=== PATIENT | male | born 1950 | race Caucasian/White ===

== ENCOUNTER 2016-12-29 06:56 | Day surgery (SDC) | payer OTHER ==
[~2016-12-29] VITALS: Ht 177.8 cm; Wt 82.5 kg
[2016-12-29] MEDS ORDERED: ATORVASTATIN CA80 MG PO (07:26)
[2016-12-29] MEDS ORDERED: ZANTAC 7575 MG PO (07:26)
[2016-12-29] MEDS ORDERED: EZETIMIBE10 MG PO (07:27)
[2016-12-29] MEDS ORDERED: TYLENOL325 MG PO (07:27)
--- NOTE | 2016-12-29 08:37 | NUR ---
12/29/16 0837 Abdoul Casey PATIENT PASSING AIR FROM RECTUM. SITTING UP AND SIPPING WATER.
--- NOTE | 2016-12-30 14:14 | OR ---
[facility] [address] [place], [place] [address] Signed DATE OF PROCEDURE: 12/29/16 PREOPERATIVE DIAGNOSES Personal history of colonic polyps, 2011. Internal hemorrhoids. Diverticulosis. Perianal skin tags. POSTOPERATIVE DIAGNOSES Perianal skin tags. Minimal to moderate internal hemorrhoids. Moderate sigmoid diverticulosis. #4 mm polyp in mid right colon. PROCEDURE: Colonoscopy with hot biopsy. ESTIMATED BLOOD LOSS: None. INDICATIONS Kurt is a 66-year-old old gentleman who came to us in 2011 for his colonoscopy. He had a perianal skin tag with left-sided diverticulosis and internal hemorrhoids. Adenomatous polyp was removed around 15 cm. He returns now for follow-up colonoscopy. He has no lower GI complaints. There was no family history of colon cancer or polyps. I gave Kurt a pamphlet on colonoscopy and we have reviewed the nature of the test along with the risks including, but not limited to gas bloating, crampy abdominal pain, bleeding, perforation requiring surgery, and missed diagnosis. We also discussed the need for IV conscious sedation. He had expressed understanding, wished to proceed. PROCEDURE NOTE Kurt was taken into endoscopy suite and placed in the left lateral decubitus position. He was given divided doses of 10 mg of Versed and 150 mcg of Fentanyl. Even then, he was awake and talking to us at the termination of the case. After this, a digital rectal exam was performed. He does have some external hemorrhoid tissue and some perianal skin tags. Prostate is a little indurated consistent with his age. The adult colonoscope was introduced and advanced all around into the cecum under direct visualization of camera without difficulty. His prep was good. The scope was then slowly withdrawn. He had a small 4-mm polyp in his mid-right colon. It was easily removed with the help of a hot biopsy forceps. He also has diverticula in the sigmoid colon. They were moderate in size, moderate in number and scattered about. Once in the rectum, the scope was then retroflexed and again he does have some minimal to moderate internal hemorrhoid columns. Otherwise, the rectum was fine. After this, the gas was suctioned out. The colonoscope removed. Kurt tolerated the procedure quite well. Electronically Signed By: MARY HAMEED MD 12/30/16 1414 PATIENT NAME: KURT OLIVEIRA OPERATIVE REPORT DATE OF : 54 PHYSICIAN: MARY HAMEED MD REPORT #: [id number] REPORT IS CONFIDENTIAL AND NOT TO BE RELEASED WITHOUT AUTHORIZATION [address] [address] Signed RECOMMENDATIONS I will see Kurt back in my office in 7-14 days to review his results. MD DEIDRE Pereira/Modl /[id number] cc: Prasanna Barbosa MD Electronically Signed By: MARY HAMEED MD 12/30/16 1414 PATIENT NAME: KRUT OLIVEIRA OPERATIVE REPORT DATE OF : 54 PHYSICIAN: MARY HAMEED MD REPORT #: [id number] REPORT IS CONFIDENTIAL AND NOT TO BE RELEASED WITHOUT AUTHORIZATION
== END 2016-12-29 09:15 | disposition home or self-care (01) ==
LOC: DS 06:56 → OPS 06:56 → DS 08:15 → OPS 08:15
PROVIDERS: Colon & Rectal Surgery
PROC: 0DBK8ZX Excision of Ascending Colon, Via Natural or Artificial Opening Endoscopic, Diagnostic (ICD-10-PCS; principal; 2016-12-29 08:15)
DX: K64.8 Other hemorrhoids (principal); K57.30 Diverticulosis of large intestine without perforation or abscess without bleeding; K64.4 Residual hemorrhoidal skin tags; I25.2 Old myocardial infarction; I70.90 Unspecified atherosclerosis; E78.5 Hyperlipidemia, unspecified; Z86.010 Personal history of colon polyps; Z98.818 Other dental procedure status; Z98.890 Other specified postprocedural states; Z87.891 Personal history of nicotine dependence; Z79.899 Other long term (current) drug therapy
CPT/HCPCS: J2250; J3010

== ENCOUNTER 2022-06-16 07:43 | Day surgery (SDC) | payer MEDICARE, OTHER ==
[~2022-06-16] VITALS: Ht 177.8 cm; Wt 84.0 kg
[~2022-06-16 07:43] MED LIST: ATORVASTATIN CA80 MG PO; EZETIMIBE10 MG PO; NEURONTIN100 MG PO; OMEPRAZOLE20 MG PO; PEPCID40 MG PO; REPATHA SY140 MG/1 M SUB-Q; TYLENOL325 MG PO; VITAMIN D312.5 MCG/5 PO; ZANTAC 7575 MG PO
[2022-06-16] MEDS ORDERED: OMEPRAZOLE20 M1 PO (08:11)
--- NOTE | 2022-06-16 09:47 | NUR ---
06/16/22 0947 Sheets,Catie [id number] PT ARRIVED TO PACU ON RA AND TALKING TO RN. PT DENIES CONCERNS AND IS ENCOURAGED TO PASS GAS NEEDED.
--- NOTE | 2022-06-17 08:12 | OR ---
[facility] [address] [place], [place] [address] Signed DATE OF OPERATION: 06/16/2022 SURGEON: Mary Hameed MD PREOPERATIVE DIAGNOSES: 1. Personal history of colonic polyps in 2012 at age 61. 2. Diverticulosis. 3. Internal hemorrhoids. POSTOPERATIVE DIAGNOSES: 1. Moderate sigmoid diverticulosis. 2. Minimal to moderate internal hemorrhoids. PROCEDURE: Colonoscopy without biopsy. ESTIMATED BLOOD LOSS: None. 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 I helped him with a colonoscopy in 2012 at the age of 61. We repeated his colonoscopy in 2017 at the age of 66. He currently has no lower GI complaints. He said his bowel movements are very regular. He has no family history of colon cancer or polyps. We know that we took out a tubular adenomatous polyp back in 2011. We know about his internal hemorrhoids and diverticulosis. We actually excised a single internal anal skin tag at that time in 2011. Of course, he remembers that quite vividly from the pain. We did take out a small polypoid lesion in the right colon in 2017. It was heavily cauterized and therefore the pathology report was not particularly forthcoming. He used large amount of Versed and fentanyl. He used 10 mg of Versed and 150 mcg of fentanyl. Nevertheless, he was frequently awake and moving around, but said he has no recall of the procedure. We talked about that in detail and he wanted to proceed again with Versed and fentanyl. In the office, I had given him a brochure on colonoscopy. We had reviewed the test. He understands there is risk including, but not limited to gas bloating, crampy abdominal pain, bleeding, perforation requiring surgery, and missed diagnosis. We also reviewed the written instructions for the bowel prep line by line. He does have significant sigmoid diverticulosis and I think additional bowel prep in the future would be helpful in that regard. And again, he wanted to use the Versed and fentanyl. He had expressed understanding and wished to proceed. Electronically Signed By: MARY HAMEED MD 06/17/22 0812 PATIENT NAME: OLY OLIVEIRA YURIY OPERATIVE REPORT DATE OF : 54 REPORT #: [id number] PHYSICIAN: MARY HAMEED MD PCP: IRA STEINBERG MD REPORT IS CONFIDENTIAL AND NOT TO BE RELEASED WITHOUT AUTHORIZATION [facility] [address] [place] [id number] Signed PROCEDURE NOTE: Oly was taken into our endoscopy suite and placed in the left lateral decubitus position. He was given IV sedation with 10 mg of Versed and 175 mcg of fentanyl. A digital rectal exam was performed and this was unremarkable. Very little if any in the way of external hemorrhoids. He had good sphincter tone. The adult colonoscope was introduced and advanced under direct visualization of the camera. Once again, it took a little while to get through his sigmoid colon. He had quite a few balls of stool from the diverticulosis. It took some extra sedation and some abdominal compression in order to get up through this area. Again, he was frequently awake and talking to us, but would rapidly fall back asleep. We eventually made our way around into the cecum itself. We could easily see the ileocecal valve and the appendiceal orifice. The scope was then slowly withdrawn. We took pictures throughout for photodocumentation. There were no polyps on this occasion. Once in the rectum, the scope was retroflexed and again he has minimal to moderate internal hemorrhoid columns. After this, the gas was suctioned out and the colonoscope removed. Oly tolerated the procedure quite well. RECOMMENDATIONS: Oly can follow up in 5 years for repeat colonoscopy. He is very close to needing monitored anesthesia care. He would probably benefit from some additional bowel prep in the future. Mary Hameed MD ALB/MODL /[id number] cc: MD Ira Reyes MD Copies: MARY HAMEED MD ~ Electronically Signed By: MARY HAMEED MD 06/17/2212 PATIENT NAME: OLY OLIVEIRA YURIY OPERATIVE REPORT DATE OF : 54 REPORT #: [id number] PHYSICIAN: MARY HAMEED MD PCP: IRA STEINBERG MD REPORT IS CONFIDENTIAL AND NOT TO BE RELEASED WITHOUT AUTHORIZATION
== END 2022-06-16 10:19 | disposition home or self-care (01) ==
LOC: OPS 07:43 → DS 07:51 → OPS 09:00 → DS 09:00 → OPS 10:19
PROVIDERS: ATTEND Colon & Rectal Surgery
PROC: 0DJD8ZZ Inspection of Lower Intestinal Tract, Via Natural or Artificial Opening Endoscopic (ICD-10-PCS; principal; 2022-06-16 09:00)
DX: K57.30 Diverticulosis of large intestine without perforation or abscess without bleeding (principal); K64.0 First degree hemorrhoids; K64.4 Residual hemorrhoidal skin tags; K21.9 Gastro-esophageal reflux disease without esophagitis; M48.00 Spinal stenosis, site unspecified; E78.00 Pure hypercholesterolemia, unspecified; Z86.010 Personal history of colon polyps; Z79.899 Other long term (current) drug therapy
CPT/HCPCS: J2250; J3010; J7121